=== PATIENT | female | born 1995 | race Caucasian/White ===

== ENCOUNTER 2023-12-22 23:59 | Observation (INO) | payer OTHER, SELFPAY ==
[2023-12-22] MEDS: ATIVAN 1 MG IV ×2 (18:29→18:54)
[2023-12-22 18:36] VITALS: BP 125/65
[2023-12-22 19:00] VITALS: BP 127/71
[2023-12-22 19:00] LABS: % Basophils 0.4 % (0-2); % Eosinophils 1.4 % (0-6); % Immature Granulocytes 0.4 % (0-0.5); % Lymphocytes 21.3 % (20.5-51.1); % Monocytes 5.7 % (1.7-9.3); % Neutrophils 70.8 % (42.2-75.2); Absolute Eosinophils 0.1 10^3/uL (0-0.7); Absolute Lymphocytes 1.7 10^3/uL (1.2-3.4); Absolute Monocytes 0.5 10^3/uL (0.1-0.6); Absolute Neutrophils 5.5 10^3/uL (1.4-6.5); Hematocrit 31.8 % (37.0-47.0); Mean Corp Hgb Conc. 34.6 g/dL (33.0-37.0); Mean Corpuscular Hgb 32.4 pg (27.0-31.0); Mean Corpuscular Volume 93.8 fL (81.0-99.0); Mean Platelet Volume 10.8 fL (7.4-10.4); Nucleated Red Blood Cells % 0 %; Platelet Count 167 10^3/uL (130-400); Red Blood Cell Count 3.39 10^6/uL (4.20-5.40); Red Cell Dist. Width 14.6 % (11.5-14.5); White Blood Cell Count 7.8 10^3/uL (4.8-10.8)
[2023-12-22 19:20] LABS: ALT (SGPT) 20 U/L (0-35); AST (SGOT) 26 U/L (14-36); Albumin 3.5 g/dl (3.5-5.0); Alkaline Phosphatase 146 U/L (38-126); Blood Urea Nitrogen 11 mg/dl (7-17); Calcium 9.2 mg/dl (8.4-10.2); Carbon Dioxide 29 mmol/L (22-30); Chloride 103 mmol/L (98-107); Glucose 70 mg/dl (70-99); Potassium 4.2 mmol/L (3.5-5.1); Sodium 139 mmol/L (135-145); Total Bilirubin 0.5 mg/dl (0.2-1.3); Total Protein 6.3 g/dl (6.3-8.2); eGFR > 60.00
[2023-12-22 20:00] VITALS: BP 135/80
[2023-12-22 21:00] VITALS: BP 137/85
[2023-12-22 22:31] VITALS: BP 155/96
--- NOTE | 2023-12-22 22:40 | ED.GENMED ---
History of Present Illness
General
Chief Complaint: Change in Mental Status
Source: patient and police
Exam Limitations: clinical condition and altered mental status
Time Seen by Provider: 12/22/23 18:24
Nursing documentation reviewed up to this point in time: agreed with
History of Present Illness
History of Present Illness:
28-year-old female with past medical history of ADHD bipolar depression presenting to the emergency department via police. Police report that they were going to arrest her in her home today. She was initially asymptomatic and then started shaking
and writhing in the squad car was then brought in for assessment into the ER. Patient did have vaginal delivery 5 days ago. No specific complications when she was able to answer questions intermittently during her shaking. Answering with one-word
answers
Past History
Past History
ED Past Medical History: Asthma and Psychiatric (Bulimia, heroin abuse)
ED Past Surgical History: None
Social History
Tobacco: Smoker
Alcohol: None
Drug: Marijuana and Other (Heroin)
Personal: Single
Living: other (lives in recovery home)
Review of Systems
Review of Systems
Allergies reviewed?: Yes
All Other Systems: ROS reviewed and negative except as documented in HPI and ROS
Phy Exam
Physical Exam
Physical Exam:
GENERAL: Alert
EYE: pupils equal and reactive
NECK: Supple, no significant adenopathy.
ENT: o/p clr, mmm.
CARDIAC: Regular rate and rhythm .
LUNGS: Clear breath sounds bilaterally, no acute respiratory distress, no wheezes/rales/rhonchi
ABDOMEN: Soft, without focal tenderness, no r/g, no cvat
NEUROLOGICAL: Moving all extremities continuously during initial assessment
SKIN: Warm and dry, skin intact.
MUSCULOSKELETAL: No edema, well perfused.
PSYCH: Not responding with more than single word answers
Course
Orders/Labs/Results
Orders:
Orders
12/22/23 18:27
Lorazepam [Ativan] 2 mg .ROUTE .STK-MED ONE
12/22/23 18:28
Lorazepam [Ativan] 1 mg IV NOW STA
12/22/23 18:51
Acetaminophen Urgent
Alcohol Urgent
CBC/With Diff [Complete Blood Count/With Diff] Urgent
CMP [Comprehensive Metabolic Panel] Urgent
Salicylate Urgent
Lorazepam [Ativan] 1 mg IV NOW STA
12/22/23 20:21
CT Head W/o Iv Contrast Urgent
Comment:
Reason For Exam: AMS
12/22/23 22:37
Add On- LAB Urgent
Tests Added?: alcohol level, tylenol level, salycylate level
12/22/23 22:55
Fentanyl, Urine Urgent
Urinalysis Reflex To Culture Urgent
Date Specimen was Collected: 12/22/23
Time Specimen was Collected: 20:40
Urine Drug Abuse Screen Urgent
Date Specimen was Collected: 12/22/23
Time Specimen was Collected: 22:54
Urine Microscopic Reflex Cult Urgent
Urine Culture Urgent
ALEX Source: U
Specimen Description:
Date Specimen was Collected: 12/22/23
Time Specimen was Collected: 20:40
12/22/23 23:00
Flush (0.9% Sodium Chloride) [Flush (Nss)] See Dose Instructions IV PER PROTOCOL
Abnormal Lab Results
12/22/23 12/22/23
18:51 22:55
RBC 3.39 L 10^6/uL
(4.20-5.40)
Hgb 11.0 L g/dL
(12.0-16.0)
Hct 31.8 L %
(37.0-47.0)
MCH 32.4 H pg
(27.0-31.0)
RDW 14.6 H %
(11.5-14.5)
MPV 10.8 H fL
(7.4-10.4)
Alkaline Phosphatase 146 H U/L
(38-126)
Urine Ketones 2+ A
(Negative)
Urine Urobilinogen 2+ A
(Neg - 1+)
Leukocyte Esterase Rfl Trace A
(Negative)
Urine WBC (Reflex) 26-30 A /HPF
(0-5)
Urine Bacteria (Reflex) Few A
(Negative)
Salicylates < 1.0 L mg/dl
(2.0-20.0)
Acetaminophen < 10 L ug/ml
(10-30)
Ur Amphetamines Screen Positive H
(Negative)
U Methamphetamines Scrn Positive H
(Negative)
U Benzodiazepines Scrn Positive H
(Negative)
U Marijuana (THC) Screen Positive H
(Negative)
12/22/23 18:51
12/22/23 18:51
Vital Signs
Initial and Last Documented VS:
Initial Vital Signs
Temp Pulse Resp BP Pulse Ox
98.1 F 106 16 125/65 100
12/22/23 18:36 12/22/23 18:36 12/22/23 18:36 12/22/23 18:36 12/22/23 18:36
Last Documented Vital Signs
Temp Pulse Resp BP Pulse Ox
98.1 F 62 19 137/90 97
12/22/23 18:36 12/23/23 06:16 12/23/23 06:16 12/23/23 06:16 12/22/23 20:00
MDM/Problems Addressed
MDM/Problems Addressed:
28-year-old female presenting to the emergency department with continuous motion groaning head rotation thrusting motions after police arrived to arrest her. She was otherwise asymptomatic prior to this according to her and family. Vaginal
delivery [address] [facility]. Patient does have a long history of psychiatric illness. Symptoms seem most consistent with PNES. Very unlikely to be true epileptic seizure activity. Patient is intermittently holding shot, responsive
to stimuli during the episode. Patient was given a dose of Ativan with improving symptoms. Initial heart rate elevated but improving after treatment. Patient then started to rest but was arousable unwilling to answer more than single word
answers. Labs were obtained without acute abnormalities. Head CT was ordered to ensure there was no alternate diagnosis. This was normal. Patient still continually not fully awake and concerning this plan to admit for further monitoring and
assessment.
Patient was accompanied by [facility]'s initially. They needed to leave and recommended if patient is able to be discharged for us to contact [facility] police for her to be taken in custody.
*Critical Care Note
Total Time (30-74mins, 75-104mins- exclusive of procedures): Not Applicable
ED Attending Note
-
Portions of this chart may have been created with voice recognition software.� Occasional wrong word or��sound alike� substitutions may have occurred due to the inherent limitations of voice recognition software.
Discharge Plan
Departure
Patient Disposition: Admit
Date of Disposition: 12/22/23
Time of Disposition: 23:42
Admit to: Med/Surg
Admit to doctor: Suhas
Presentation/result/management discussed w/ accepting MD/DO: Hospitalist
Patient with high blood pressure during this ER visit?: No
Condition: Good
Covid-19: Not Applicable
Discharge Problem:
AMS (altered mental status)
Interventions
Interventions:
*Risk Screen - Suicide Last Done: 12/22/23 18:21
*General Assessment Last Done: 12/22/23 18:21
*Neglect/Abuse Screening Last Done: 12/22/23 18:21
ED- Fall Risk Assessment Last Done: 12/22/23 18:38
*ED COVID-19 Vaccine History Last Done: 12/22/23 18:21
*Nursing Disposition Last Done: 12/23/23 11:42
ED- Pulmonary Assessment Last Done: 12/22/23 18:38
ED- Neurological Assessment Last Done: 12/22/23 18:38
ED- Cardiac Assessment Last Done: 12/22/23 18:38
Discharge Date and Time
Discharge Date/Time: 12/23/23 11:45
[2023-12-22 23:00] VITALS: BP 139/91
[2023-12-22 23:03] LABS: Urine Albumin Trace (Neg - Trace); Urine Bilirubin Negative (Negative); Urine Character Clear (Clear); Urine Color Yellow; Urine Glucose Negative (Negative); Urine Ketone 2+ (Negative); Urine Leukocyte Trace (Negative); Urine Nitrite Negative (Negative); Urine Occult Blood Negative (Negative); Urine Specific Gravity 1.025 (<1.030); Urine Urobilinogen 2+ (Neg - 1+)
[2023-12-22 23:12] LABS: Acetaminophen < 10 ug/ml (10-30); Salicylate < 1.0 mg/dl (2.0-20.0)
[2023-12-22 23:12] LABS: Barbiturates Negative (Negative); Benzodiazepines Positive (Negative); Buprenorphine Negative (Negative); Cocaine Negative (Negative); Methadone Negative (Negative); Methamphetamines Positive (Negative)
[2023-12-22 23:13] LABS: Amphetamines Positive (Negative); Marijuana Positive (Negative); Opiates Negative (Negative); Phencyclidine Negative (Negative); Tricyclic Antidepressants Negative (Negative); Urine Hyaline Cast 0-2 /LPF (0-2); Urine Mucus Moderate
[2023-12-22 23:14] LABS: Urine Bacteria Few (Negative); Urine Red Blood Cell 0-2 /HPF (0-2); Urine White Cell 26-30 /HPF (0-5)
[2023-12-22 23:14] LABS: Alcohol None Detected
--- NOTE | 2023-12-22 23:49 | HPS.HSE ---
Family Physician
-
Family Physician: NOT KNOW UNKNOWN - PT DOES
Chief Complaint
-
Seizure/pseudoseizure
History of Present Illness
This is a 28-year-old female who is status post delivery about 5 days ago and presents to the emergency department with the seizure-like episode. Patient unable to provide any history due to somnolence and non-cooperative behavior.
History records and chart indicate that patient was being brought into custody by the police department. During the booking the patient developed seizure-like activity with generalized tonic-clonic movements and unresponsiveness associate was
brought to the emergency department to rule out a seizure. In the emergency department she continued to have this behavior and was non cooperative. Nurses indicated that the behavior could be directed with sternal rub or voice commands. Otherwise
she provides no additional history.
She has no known prior history and is not on any medications.
She had stable vital signs emergency department. Chemistries were all within normal limits. CBC was within normal limits. Serum drug screen was negative. Urine tox was positive for amphetamines benzo and THC. CT of the head was negative.
Patient received 1 mg of Ativan x 2 in the emergency department. She has remained somnolent although arousable and noncooperative since.
Medical History
Past Medical History
Past Medical History: Reports Other (Unable to obtain)
Past Surgical History: Reports Other (Unable to obtain)
Social History
Unable to obtain full social history at this time due to: Other (non-cooperative)
Family History
Family History: Unable to Obtain
Allergies / Home Medications
Allergies reflects when Allergies were last updated in [employer] [facility].
Home Medications with original date entered in [employer] [facility]
Allergy/Medication List:
Allergies
Allergy/AdvReac Type Severity Reaction Status Date / Time
bupropion HCl Allergy Swelling Verified 09/19/21 16:58
[From Wellbutrin]
Home Medications
vitamin-ferrous fumarate 28 mg iron-folic acid 800 mcg tablet 1 ea PO DAILY 08/28/17
acetaminophen 325 mg tablet 650 mg (2 x 325 mg) PO Q4HPRN PRN mild pain 09/21/21
ibuprofen 600 mg tablet 600 mg PO Q6HPRN PRN moderate pain/cramps #30 tabs 09/21/21
sennosides 8.6 mg-docusate sodium 50 mg tablet 1 tab PO DAILYPRN PRN constipation 09/21/21
Review of Systems
-
Unable to obtain full review of systems at this time due to: Patient Non-verbal
Physical Exam
Vital Signs
Vital Signs
Temp Pulse Resp BP Pulse Ox
98.1 F 74 21 139/91 97
12/22/23 18:36 12/22/23 23:00 12/22/23 23:00 12/22/23 23:00 12/22/23 20:00
Physical Exam
General: No Apparent Distress
HEENT: NormoCephalic, Anicteric, Atraumatic and Other (normal reactive pupils bilaterally)
Respiratory: Clear
Cardiac: S1/S2 and Regular Rhythm
Breast: Deferred by me
GI: Soft, Non Tender and Non Distended
Rectal: Deferred by Provider
Genito-urinary: Deferred by me
Musculoskeletal: No Clubbing, No Cyanosis and No Edema
Skin: Warm
Neuro: Sedated
Hematologic/Lymphatic: No Lymphadenopathy
Laboratory Results
-
12/22/23 18:51
12/22/23 18:51
Laboratory Results
Total Bilirubin 0.5 mg/dl (0.2-1.3) 12/22/23 18:51
AST 26 U/L (14-36) 12/22/23 18:51
ALT 20 U/L (0-35) 12/22/23 18:51
Alkaline Phosphatase 146 U/L (38-126) H 12/22/23 18:51
Data Reviewed
-
CT Scan: Report Reviewed by me
Lab Data: Labs Reviewed by me
Old Records: Reviewed
Impression/Plan
-
IMPRESSION:
28 y.o female who is 5 days post- presents to ED with seizure-like activity thought to be pseudo-seizures in setting of being apprehended by the police department. S/P lorazepam 1mg x 2 in ED. Patient has been somnolent since and unable to
provide history. When awoken with sternal rub she is non-cooperative. Exam is benign. CT head is negative. Labs notable for Utox positive for THC and amphetamines. She has been released by the police department. No further seizure like
activity noted on my exam.
PLAN:
Pseudo-seizure vs Seizure - Utox positive for TCH and amphetamines but labs and CT otherwise unremarkable. No prior history of seizures. Well appearing and in no acute distress but poor history due to lack of cooperation.
- admit to med/surg obs
- neuro consult, will hold off on mri
- lorazepam prn seizure for now
- neurochecks q 6 hours
- dvt ppx with lovenox sq
Full Code
[2023-12-22 23:58] LABS: Fentanyl, Urine Negative (Negative)
[2023-12-23] VITALS (7 sets, daily range): BP systolic 132–140; BP diastolic 83–98
[2023-12-23] MEDS: FLUSH (NSS) 1 FLUSH IV (06:25)
--- NOTE | 2023-12-23 10:28 | W.PN.HOSP.TC ---
Today's Communication/Plan
-
See plan
Assessment / Plan
Assessment / Plan
Impression:
Altered mental status
Recent delivery at [facility] 5 days prior to presentation.
History of substance abuse
Plan:
Altered mental status.
Reportedly convulsive episode at the time of booking to the half-way.
Treated with lorazepam in ED and currently lethargic.
Differential diagnosis: Seizure versus pseudoseizure, altered mental status? Postictal versus related to administered benzodiazepines
Prior history of substance abuse
Urine toxic screen positive for amphetamines and marijuana. Patient able to deny IVDA/opiates/benzodiazepines.
Unremarkable CBC/BMP.
CT scan of the head with no acute abnormalities per
Monitor with seizure precautions, possibly substance withdrawal
Neurology/psychiatry evaluation
Advance diet with aspiration precautions
IV hydration
Anticipated Discharge: 24 - 48 hours
Subjective/Interval History
-
Date of Service: December 23, 2023
Objective Data
-
Vital Signs:
Vital Signs
Temp Pulse Resp BP Pulse Ox
98.1 F 62 19 137/90 97
12/22/23 18:36 12/23/23 06:16 12/23/23 06:16 12/23/23 06:16 12/22/23 20:00
Physical Exam
-
General: Well Developed and No Apparent Distress
HEENT: Normocephalic, Atraumatic and Moist Mucous Membranes
Respiratory: Clear to Auscultation
Cardiac: Regular Rhythm and S1/S2; Negative Murmur, Rub or Gallop
GI: Soft, Nontender, Nondistended and Normal Bowel Sounds; Negative Organomegaly
Rectal: Deferred by Provider
Musculoskeletal: No Clubbing, No Cyanosis and No Edema
Skin: Negative Rash
Neuro: Other (Lethargic, opening eyes and following commands. Able to answer simple questions.)
--- NOTE | 2023-12-23 11:43 | W.PN.UPDATE ---
Update Note
Progress Note Update
Patient eloped.
== END 2023-12-23 11:36 | disposition home or self-care (01) ==
LOC: ED 23:59
PROVIDERS: Physician Assistant; ADMITTING PHYSICIAN Internal Medicine; ATTENDING PHYSICIAN Internal Medicine; EMERGENCY PHYSICIAN Student in an Organized Health Care Education/Training Program
DX: R41.82 Altered mental status, unspecified (principal); R56.9 Unspecified convulsions; R25.1 Tremor, unspecified; F15.10 Other stimulant abuse, uncomplicated; F12.10 Cannabis abuse, uncomplicated; R40.0 Somnolence; F11.10 Opioid abuse, uncomplicated; F31.9 Bipolar disorder, unspecified; F90.9 Attention-deficit hyperactivity disorder, unspecified type; J45.909 Unspecified asthma, uncomplicated; F17.200 Nicotine dependence, unspecified, uncomplicated; F50.2 Bulimia nervosa; Z88.8 Allergy status to other drugs, medicaments and biological substances; Z65.3 Problems related to other legal circumstances
CPT/HCPCS: 70450; 80053; 80143; 80179; 80306; 80307; 81003; 81015; 82077; 85025; 87086; 96374; 99284; G0378

== ENCOUNTER 2024-02-18 08:30 | Emergency (ER) | payer OTHER, SELFPAY ==
[2024-02-18 08:32] VITALS: BP 164/108
[2024-02-18 08:39] VITALS: BMI 32.7
[2024-02-18 08:44] LABS: % Basophils 0.8 % (0-2); % Immature Granulocytes 0.2 % (0-0.5); % Lymphocytes 22.1 % (20.5-51.1); % Monocytes 4.7 % (1.7-9.3); % Neutrophils 71.2 % (42.2-75.2); Absolute Basophils 0.1 10^3/uL (0-0.2); Absolute Eosinophils 0.1 10^3/uL (0-0.7); Absolute Lymphocytes 1.8 10^3/uL (1.2-3.4); Absolute Monocytes 0.4 10^3/uL (0.1-0.6); Absolute Neutrophils 5.9 10^3/uL (1.4-6.5); Hematocrit 38.7 % (37.0-47.0); Hemoglobin 13.1 g/dL (12.0-16.0); Mean Corp Hgb Conc. 33.9 g/dL (33.0-37.0); Mean Corpuscular Volume 88.6 fL (81.0-99.0); Mean Platelet Volume 11.4 fL (7.4-10.4); Nucleated Red Blood Cells % 0 %; Platelet Count 172 10^3/uL (130-400); Red Blood Cell Count 4.37 10^6/uL (4.20-5.40); Red Cell Dist. Width 14.3 % (11.5-14.5); White Blood Cell Count 8.3 10^3/uL (4.8-10.8)
--- NOTE | 2024-02-18 08:46 | ED.GENMED ---
History of Present Illness
General
Chief Complaint: Chest Pain
Source: patient
Time Seen by Provider: 02/18/24 08:31
History of Present Illness
History of Present Illness:
29-year-old female presents in custody after being arrested with complaints of chest pain. She describes the pain as constant sharp in nature. She also notes bilateral 'kidney pain.' This has been going on for 3 to 4 days. She denies any
shortness of breath. She states she has a history of 'swelling around the heart.' She was admitted about 2 months ago after being incarcerated for change in mental status and seizure-like activity. Patient is not currently taking any medications.
No recent travel or surgery. No other complaints
Past History
Past History
ED Past Medical History: Asthma and Psychiatric (Bulimia, heroin abuse)
ED Past Surgical History: None
Social History
Tobacco: Smoker
Alcohol: None
Drug: Marijuana and Other (Heroin)
Personal: Single
Living: other (lives in recovery home)
Phy Exam
Physical Exam
Physical Exam:
General: Tearful female no acute respiratory distress
HEENT: Normocephalic atraumatic
Heart: Slightly tachycardic but regular
Lungs: Breath sounds heard in all [place]. Clear bilaterally
Abdomen: Soft no significant tenderness vertebral angle bilaterally
Extremities: No cyanosis
Scores
Heart Score for Chest Pain Patients
STEMI patient?: No
History: Slightly or Non-Suspicious
ECG: Normal
Age: </= 45 years
Risk Factors: No Risk Factors
Troponin: </= Normal Limit
Heart Score for Chest Pain Patients: 0
Heart Score Risk: 2.5% MACE over next 6 weeks
PERC Rule Criteria
Age <50 years: Yes
HR <100 bpm: Yes
Room air oxygen sat >94%: Yes
History of DVT or PE: No
Recent trauma or surgery: No
Hemoptysis: No
Exogenous estrogen: No
Clinical signs suggestive of DVT: No
: No
Considered low risk for PE: Yes
PERC Score: 0
PE can be excluded by PERC: Yes
Course
Orders/Labs/Results
Orders:
Orders
02/18/24 08:31
Electrocardiogram (*1) Urgent
Reason for Study: Chest Pain
EKG- Treatment ONCE
02/18/24 08:36
Crisis Consult Urgent
Reason for Consult: SI
02/18/24 08:37
Complete Blood Count/With Diff Urgent
Comprehensive Metabolic Panel Urgent
HCG, Serum Qualitative Screen Urgent
Comment: ADD ON
Lipase Urgent
Comment: ADD ON
Troponin I Urgent
02/18/24 08:46
Test Result ONCE
CR Chest - 2 Views Urgent
Comment:
Reason For Exam: chest pain
02/18/24 08:47
Add On- LAB Urgent
Tests Added?: HCG, LIPASE
Abnormal Lab Results
02/18/24
08:37
MPV 11.4 H fL
(7.4-10.4)
02/18/24 08:37
02/18/24 08:37
Vital Signs
Initial and Last Documented VS:
Initial Vital Signs
Temp Pulse Resp BP Pulse Ox
98.1 F 113 18 164/108 99
02/18/24 08:32 02/18/24 08:32 02/18/24 08:32 02/18/24 08:32 02/18/24 08:32
Last Documented Vital Signs
Temp Pulse Resp BP Pulse Ox
98.1 F 90 28 140/93 96
02/18/24 08:32 02/18/24 10:00 02/18/24 10:00 02/18/24 10:00 02/18/24 09:45
MDM/Problems Addressed
Differential Diagnosis Includes:
Chest pain. Will obtain EKG labs including troponin lipase x-ray pending as well. Patient currently accompanied by .
*Critical Care Note
Total Time (30-74mins, 75-104mins- exclusive of procedures): Not Applicable
Update Note
Update Note:
Troponin undetectable chest x-ray clear vital signs now normal. She is not tachycardic currently. She is not hypoxic. Patient developed chest pain when getting arrested. Do not suspect PE. At this point she is medically cleared for discharge
and incarceration
ED Attending Note
-
Portions of this chart may have been created with voice recognition software.� Occasional wrong word or��sound alike� substitutions may have occurred due to the inherent limitations of voice recognition software.
Discharge Plan
Departure
Patient Disposition: Jail
Date of Disposition: 02/18/24
Time of Disposition: 10:25
Patient with high blood pressure during this ER visit?: No
Discharge Problem:
Chest pain
Instructions: Chest Pain That Is Not Caused by the Heart (DC)
Prescriptions:
No Action
Unobtainable
0
Referrals:
[facility] [Family Provider] -
Activity Restrictions/Additional Instructions:
You are medically cleared for incarceration. Please return here if needed.
Interventions
Interventions:
*Risk Screen - Suicide Last Done: 02/18/24 08:32
*General Assessment Last Done: 02/18/24 08:32
*Neglect/Abuse Screening Last Done: 02/18/24 08:32
ED- Fall Risk Assessment Last Done: 02/18/24 10:01
*ED COVID-19 Vaccine History Last Done: 02/18/24 10:41
*Nursing Disposition Last Done: 02/18/24 10:41
ED- Cardiac Assessment Last Done: 02/18/24 08:38
Discharge Date and Time
Discharge Date/Time: 02/18/24 10:42
Print Language: [place]
[2024-02-18 08:59] LABS: ALT (SGPT) 21 U/L (0-35); AST (SGOT) 22 U/L (14-36); Albumin 4.3 g/dl (3.5-5.0); Alkaline Phosphatase 86 U/L (38-126); Blood Urea Nitrogen 11 mg/dl (7-17); Calcium 9.3 mg/dl (8.4-10.2); Carbon Dioxide 24 mmol/L (22-30); Chloride 104 mmol/L (98-107); Estimated Creatinine Clearance > 125 ml/min; Glucose 96 mg/dl (70-99); Potassium 4.2 mmol/L (3.5-5.1); Sodium 139 mmol/L (135-145); Total Bilirubin 0.5 mg/dl (0.2-1.3); Total Protein 6.8 g/dl (6.3-8.2); eGFR > 60.00
[2024-02-18 09:00] VITALS: BP 142/59
[2024-02-18 09:09] LABS: Troponin I < 0.012 ng/ml
[2024-02-18 09:13] LABS: HCG, Serum Qualitative Screen Negative
[2024-02-18 09:15] LABS: Lipase 75 U/L (23-300)
--- NOTE | 2024-02-18 09:20 | EDRN ---
1:1 [facility]
Crisis spoke with this RN, pt is under police custody and will be taken to [facility] following medical clearance.
[2024-02-18 09:34] VITALS: BP 134/94
[2024-02-18 10:00] VITALS: BP 140/93
== END 2024-02-18 10:42 ==
LOC: EMR 08:30
PROVIDERS: Physician Assistant; EMERGENCY PHYSICIAN Emergency Medicine
DX: R07.89 Other chest pain (principal); J45.909 Unspecified asthma, uncomplicated; F50.20 Bulimia nervosa, unspecified; F11.10 Opioid abuse, uncomplicated; F17.210 Nicotine dependence, cigarettes, uncomplicated; Z65.3 Problems related to other legal circumstances
CPT/HCPCS: 99283; 71046; 80053; 83690; 84484; 84703; 85025; 93005

== ENCOUNTER 2024-12-07 07:34 | Emergency (ER) | payer OTHER, SELFPAY ==
[2024-12-07 07:38] VITALS: BP 142/101
[2024-12-07 07:54] VITALS: BP 142/101; BMI 26.5
[2024-12-07 07:58] LABS: Hematocrit 38.4 % (37.0-47.0); Hemoglobin 12.4 g/dL (12.0-16.0); Mean Corp Hgb Conc. 32.3 g/dL (33.0-37.0); Mean Corpuscular Volume 90.8 fL (81.0-99.0); Nucleated Red Blood Cells % 0 %; Platelet Count 108 10^3/uL (130-400); Red Cell Dist. Width 15.2 % (11.5-14.5)
--- NOTE | 2024-12-07 08:05 | ED.GENMED ---
History of Present Illness
General
Chief Complaint: Breathing Problem
Source: patient
Exam Limitations: none
Time Seen by Provider: 12/07/24 07:35
Nursing documentation reviewed up to this point in time: agreed with
History of Present Illness
History of Present Illness:
29-year-old female past medical history of asthma presenting to the emergency department today after going on a walk with her spouse this morning feeling short of breath lightheaded. She has had upper respiratory symptoms over the past few days
slightly worsened this morning. Denies any specific chest pain has been of some wheezing. Denies fevers.
Past History
Past History
ED Past Medical History: Asthma and Psychiatric (Bulimia, heroin abuse)
ED Past Surgical History: None
Social History
Tobacco: Smoker
Alcohol: None
Drug: Marijuana and Other (Heroin)
Personal: Single
Living: other (lives in recovery home)
Review of Systems
Review of Systems
Allergies reviewed?: Yes
All Other Systems: ROS reviewed and negative except as documented in HPI and ROS
Phy Exam
Physical Exam
Physical Exam:
GENERAL: Alert , in no apparent distress
EYE: pupils equal and reactive
NECK: Supple, no significant adenopathy.
ENT: Swollen boggy nasal turbinates, irritation of the posterior pharynx o/p clr, mmm.
CARDIAC: Regular rate and rhythm .
LUNGS: Diffuse expiratory wheezing,
ABDOMEN: Soft, without focal tenderness, no r/g, no cvat
NEUROLOGICAL: Alert and oriented, no focal neuro deficits
SKIN: Warm and dry, skin intact.
MUSCULOSKELETAL: No edema, well perfused.
PSYCH: Normal and appropriate interaction.
Course
Orders/Labs/Results
Orders:
Orders
12/07/24 07:41
EKG [Electrocardiogram (*1)] Urgent
Reason for Study: Shortness of Breath
EKG- Treatment ONCE
12/07/24 07:44
Dexamethasone [Decadron] 10 mg PO NOW STA
Chest [CR Chest - 2 Views ] Urgent
Comment:
Reason For Exam: cough sob
12/07/24 07:45
COVID-19 Antigen Urgent
Source: Nasal Swab
Complete Blood Count/With Diff Urgent
Comprehensive Metabolic Panel Urgent
HCG, Serum Qualitative Screen Urgent
Influenza A+B Rapid Molecular Urgent
ALEX Source: Nasal Swab
Specimen Description:
12/07/24 07:48
Dexamethasone Sod Phosphate [Decadron] 10 mg IV NOW STA
Test Result ONCE
12/07/24 08:12
Ipratropium/Albuterol Sulfate [Duoneb] 3 ml INH R NOW ONE
Abnormal Lab Results
12/07/24
07:45
MCHC 32.3 L g/dL
(33.0-37.0)
RDW 15.2 H %
(11.5-14.5)
Plt Count 108 L 10^3/uL
(130-400)
MPV 12.0 H fL
(7.4-10.4)
Absolute Lymphs (auto) 1.1 L 10^3/uL
(1.2-3.4)
Lymphocytes % 16.2 L %
(20.5-51.1)
Monocytes % 9.5 H %
(1.7-9.3)
AST 72 H U/L
(14-36)
ALT 45 H U/L
(0-35)
12/07/24 07:45
12/07/24 07:45
Vital Signs
Initial and Last Documented VS:
Initial Vital Signs
BP
142/101
12/07/24 07:38
Last Documented Vital Signs
Temp Pulse Resp BP Pulse Ox
99.2 F 95 16 145/95 96
12/07/24 07:54 12/07/24 08:46 12/07/24 08:46 12/07/24 08:46 12/07/24 08:46
MDM/Problems Addressed
MDM/Problems Addressed:
29-year-old female presenting to the emergency department today with concerns of shortness of breath lightheadedness upon walking this morning. On arrival slightly elevated blood pressure slightly tachycardic she has significant nasal congestion
and significant secretions she does have a and expiratory wheeze diffusely. Plan to start steroid as well as nebulizer. Patient feeling much better and breathing much more readily after receiving nebulizer and steroid plan for outpatient treatment
at this point. Return precautions given.
*Pulse Oximetry
SaO2: 94
Oxygen Mode of Delivery: Room air
Patient hypoxic: no (96)
*Critical Care Note
Total Time (30-74mins, 75-104mins- exclusive of procedures): Not Applicable
ED Attending Note
-
Portions of this chart may have been created with voice recognition software.� Occasional wrong word or��sound alike� substitutions may have occurred due to the inherent limitations of voice recognition software.
Discharge Plan
Departure
Patient Disposition: Home (Routine Discharge)
Date of Disposition: 12/07/24
Time of Disposition: 10:03
Patient with high blood pressure during this ER visit?: No
Condition: Good
Covid-19: Not Applicable
Discharge Problem:
Acute viral syndrome, Asthma exacerbation
Instructions: Asthma, Adult (DC)
Prescriptions:
New
prednisone 20 mg tablet
40 mg PO DAILY 4 Days Qty: 8 0RF
No Action
metformin 500 mg Tablet
500 mg PO BID
prazosin 1 mg Capsule
1 mg PO HS
quetiapine [Seroquel] 100 mg Tablet
150 mg PO HS
buprenorphine-naloxone [Suboxone] 2-0.5 mg Tablet, Sublingual
16 tab SUBLINGUAL DAILY
Referrals:
NONE,* [Family Provider, Internal Medicine]
Activity Restrictions/Additional Instructions:
You came to the emergency department today with concerns of shortness of breath and lightheadedness. Here you had a reassuring assessment. You did have wheezing on exam. Please take prescribed steroid and use your inhaler at home as needed over
the next few days and follow-up closely with your primary care doctor within 1 week. Return for any worsening, new or concerning symptoms.
Interventions
Interventions:
*Risk Screen - Suicide Last Done: 12/07/24 07:54
*General Assessment Last Done: 12/07/24 07:54
*Neglect/Abuse Screening Last Done: 12/07/24 07:54
*ED- Fall Risk Assessment Last Done: 12/07/24 07:54
*ED COVID-19 Vaccine History Last Done: 12/07/24 07:54
ED- Cardiac Assessment Last Done: 12/07/24 07:54
ED- Pulmonary Assessment Last Done: 12/07/24 07:54
Discharge Date and Time
Print Language: ARABIC
[2024-12-07] MEDS: DECADRON 10 MG IV (08:10)
[2024-12-07 08:12] LABS: COVID-19 Antigen Negative (Negative)
[2024-12-07 08:13] VITALS: BP 145/95
[2024-12-07] MEDS: DUONEB 3 ML INH (08:14)
[2024-12-07 08:16] LABS: HCG, Serum Qualitative Screen Negative
[2024-12-07 08:21] LABS: ALT (SGPT) 45 U/L (0-35); AST (SGOT) 72 U/L (14-36); Albumin 4.7 g/dl (3.5-5.0); Alkaline Phosphatase 87 U/L (38-126); Blood Urea Nitrogen 10 mg/dl (7-17); Calcium 9.2 mg/dl (8.4-10.2); Carbon Dioxide 26 mmol/L (22-30); Chloride 105 mmol/L (98-107); Estimated Creatinine Clearance > 125 ml/min; Glucose 89 mg/dl (70-99); Potassium 4.1 mmol/L (3.5-5.1); Sodium 141 mmol/L (135-145); Total Protein 7.7 g/dl (6.3-8.2); eGFR > 60.00
[2024-12-07 08:46] VITALS: BP 145/95
--- NOTE | 2024-12-07 10:18 | EDRN ---
per the providers request, this RN ambulated the patient and the pt was able to ambulate independently with no difficulty
== END 2024-12-07 12:12 | disposition home or self-care (01) ==
LOC: EMR 07:34
PROVIDERS: Physician Assistant; EMERGENCY PHYSICIAN Emergency Medicine
DX: B34.9 Viral infection, unspecified (principal); J45.901 Unspecified asthma with (acute) exacerbation; F17.200 Nicotine dependence, unspecified, uncomplicated
CPT/HCPCS: 99283; 94640; 96374; 71046; 80053; 84703; 85025; 87502; 87811; 93005